=== PATIENT | female | born 1950 | race Caucasian/White ===

== ENCOUNTER 2019-02-02 16:49 | Inpatient (IN) ==
[2019-02-02] MEDS ORDERED: ALBUTEROL 2.5 MG/3 ML NEB RESP TX STA (17:23)
[2019-02-02] MEDS ORDERED: SODIUM CHLORIDE 0.9% 1,000 ML IV STA ×2 (17:55→23:29)
[2019-02-02 19:15] LABS: Basophils % 0.3 % (0.0-0.8); Eosinophils # 0.3 10*3/uL (0.0-0.87); Eosinophils % 3.7 % (0.00-10.9); Hematocrit 27.5 VOL% (35.7-47.0); Hemoglobin 8.5 GM/DL (12.0-16.0); Immature Granulocytes % 1.2 %; Immature Granulocytes Absolute 0.08 #; Lymphocytes # 1.8 10*3/uL (1.4-4.0); Lymphocytes % 26.8 % (21.3-54.2); Mean Corpuscular HGB Conc 30.9 GM/DL (32-36); Mean Corpuscular Volume 96.8 FL (87-102); Mean Platelet Volume 10.1 FL (9.6-12.0); Monocytes % 9.7 % (1.7-12.7); Neutrophils % 58.3 % (38.7-73.9); Platelet Count 447 T/CUMM (130-400); Red Blood Count 2.84 MC/CUMM (3.8-5.5); Red Cell Distribution Width 16.2 % (9.3-17.3); White Blood Count 6.8 T/CUMM (4-12)
[2019-02-02 19:20] LABS: Apearance,Urine CLOUDY (Clear); Bacteria,Urine Many /HPF (Few); Bilirubin,Urine Negative (Negative); Blood, Urine Small mg/dL (Negative); Glucose,Urine (UA) Negative (Negative); Ketones,Urine Negative (Negative); Mucus,Urine Occasional /LPF (Occasional); Nitrite,Urine Positive (Negative); Protein,Urine Negative; RBC,Urine 59 /HPF (0-4); Squamous Epithelial Cell,Urine Few /HPF (0-10); Urine Color Yellow (Yellow); Urine Specific Gravity 1.013 (1.001-1.035); Urine Urobilinogen < 2.0 EU/DL (0.2-1.0); WBC,Urine 553 /HPF (0-6)
[2019-02-02 19:27] LABS: PT Patient Result 10.9 SECS; Partial Thromboplastin Time 26.4 SECS (0-40)
[2019-02-02] MEDS ORDERED: cefTRIAXone 1,000 MG in SODIUM CHLORIDE 0.9% 100 ML IV STA (19:33)
[2019-02-02 19:34] LABS: Alanine Aminotransferase 22 U/L (13-56); Albumin 2.9 G/DL (3.4-5.0); Alkaline Phosphatase 44 U/L (45-117); Aspartate Amino Transferase 30 U/L (0-37); Bilirubin,Total < 0.39 MG/DL (0.2-1.0); Blood Urea Nitrogen 77 MG/DL (7-18); Calcium 8.8 MG/DL (8.5-10.1); Glucose 87 MG/DL (74-106); Osmolality,Calculated 307.8 MOS/KG (273-304); Total Protein 6.3 G/DL (6.4-8.3)
[2019-02-03] MEDS ORDERED: DOCUSATE SODIUM 100 MG CAPSULE PO PRN (01:55)
[2019-02-03] MEDS ORDERED: ONDANSETRON 4 MG/2 ML VIAL IV PRN (01:55)
[2019-02-03] MEDS ORDERED: ACETAMINOPHEN 325 MG TABLET PO PRN (01:55)
[2019-02-03] MEDS ORDERED: GLUCAGON 1 MG VIAL IM PRN (01:55)
[2019-02-03] MEDS ORDERED: DEXTROSE 50% 25 GM/50 ML VIAL IV PRN (01:55)
[2019-02-03] MEDS: SODIUM CHLORIDE 0.9% 1,000 ML IV SCH ×2 (02:40→11:39)
[2019-02-03] MEDS: AZITHROMYCIN INJ 500 MG in SODIUM CHLORIDE 0.9% 250 ML IV SCH (02:40)
[2019-02-03 03:04] LABS: Basophils % 0.3 % (0.0-0.8); Eosinophils # 0.2 10*3/uL (0.0-0.87); Eosinophils % 3.4 % (0.00-10.9); Hematocrit 22.1 VOL% (35.7-47.0); Hemoglobin 6.9 GM/DL (12.0-16.0); Immature Granulocytes Absolute 0.06 #; Lymphocytes # 1.8 10*3/uL (1.4-4.0); Lymphocytes % 30.6 % (21.3-54.2); Mean Corpuscular HGB Conc 31.2 GM/DL (32-36); Mean Corpuscular Volume 96.9 FL (87-102); Mean Platelet Volume 10.5 FL (9.6-12.0); Monocytes % 8.8 % (1.7-12.7); Neutrophils % 55.9 % (38.7-73.9); Platelet Count 393 T/CUMM (130-400); Red Blood Count 2.28 MC/CUMM (3.8-5.5); Red Cell Distribution Width 16.1 % (9.3-17.3); White Blood Count 5.9 T/CUMM (4-12)
[2019-02-03 03:33] LABS: Calcium 7.6 MG/DL (8.5-10.1); Osmolality,Calculated 306.7 MOS/KG (273-304); Thyroid Stimulating Hormone 0.78 uIU/ml (0.358-3.74)
[2019-02-03] MEDS: ENOXAPARIN 30 MG/0.3 ML SYRINGE SUBCUT SCH (06:01)
[2019-02-03] MEDS: ALBUTEROL/IPRATROPIUM 3 ML NEB RESP TX SCH ×3 (07:28→19:40)
[2019-02-03] MEDS ORDERED: SODIUM CHLORIDE 0.9% 1,000 ML IV PRN (08:34)
[2019-02-03] MEDS: INSULIN LISPRO 100 UNIT/ML SUBCUT SCH ×4 (08:43→20:55)
[2019-02-03] MEDS: GABAPENTIN 300 MG CAPSULE PO SCH ×3 (08:43→20:44)
[2019-02-03] MEDS: LORATADINE 10 MG TABLET PO SCH (08:43)
[2019-02-03] MEDS: MAGNESIUM CHLORIDE 64 MG TABLET PO SCH ×2 (08:43→21:01)
[2019-02-03] MEDS: POTASSIUM CHLORIDE 20 MEQ TABLET PO SCH ×2 (08:43→20:44)
[2019-02-03] MEDS: MULTIVITAMIN (CENTRUM) TABLET PO SCH (08:44)
[2019-02-03] MEDS: CARVEDILOL 6.25 MG TABLET PO SCH ×2 (08:44→17:40)
[2019-02-03] MEDS: guaiFENesin/DM ER 600-30 MG TABLET PO SCH ×2 (08:44→20:44)
[2019-02-03] MEDS: VENLAFAXINE XR 37.5 MG CAPSULE PO SCH (08:44)
[2019-02-03] MEDS: FENOFIBRATE 160 MG TABLET PO SCH (09:48)
[2019-02-03 19:13] LABS: Hemoglobin 9.8 GM/DL (12.0-16.0)
[2019-02-03] MEDS ORDERED: cefTRIAXone 1,000 MG in SYRINGE 1 EACH IV SCH (20:00)
[2019-02-03] MEDS: ATORVASTATIN 40 MG TABLET PO SCH (20:44)
[2019-02-03] MEDS: POLYVINYL ALCOHOL 1.4% OPH SOLN 15 ML BOTTLE BOTH EYES SCH (20:53)
[2019-02-03] MEDS: INSULIN GLARGINE 100 UNIT/ML SUBCUT SCH (20:54)
[2019-02-04] MEDS: ALBUTEROL/IPRATROPIUM 3 ML NEB RESP TX SCH ×4 (00:19→23:40)
[2019-02-04] MEDS: AZITHROMYCIN INJ 500 MG in SODIUM CHLORIDE 0.9% 250 ML IV SCH (01:27)
[2019-02-04] MEDS: SODIUM CHLORIDE 0.9% 1,000 ML IV SCH ×2 (01:40→12:01)
[2019-02-04 04:36] LABS: Basophils % 0.4 % (0.0-0.8); Eosinophils # 0.3 10*3/uL (0.0-0.87); Eosinophils % 4.7 % (0.00-10.9); Hemoglobin 8.8 GM/DL (12.0-16.0); Immature Granulocytes % 1.1 %; Immature Granulocytes Absolute 0.06 #; Lymphocytes # 2.3 10*3/uL (1.4-4.0); Lymphocytes % 40.3 % (21.3-54.2); Mean Corpuscular HGB Conc 31.4 GM/DL (32-36); Mean Corpuscular Volume 95.2 FL (87-102); Monocytes % 8.9 % (1.7-12.7); Neutrophils % 44.6 % (38.7-73.9); Platelet Count 312 T/CUMM (130-400); Red Blood Count 2.94 MC/CUMM (3.8-5.5); Red Cell Distribution Width 15.5 % (9.3-17.3); White Blood Count 5.6 T/CUMM (4-12)
[2019-02-04 04:59] LABS: Calcium 7.4 MG/DL (8.5-10.1); Osmolality,Calculated 299.8 MOS/KG (273-304)
[2019-02-04] MEDS: ENOXAPARIN 30 MG/0.3 ML SYRINGE SUBCUT SCH (05:12)
[2019-02-04] MEDS: MULTIVITAMIN (CENTRUM) TABLET PO SCH (08:19)
[2019-02-04] MEDS: MAGNESIUM CHLORIDE 64 MG TABLET PO SCH ×2 (08:19→21:03)
[2019-02-04] MEDS: FENOFIBRATE 160 MG TABLET PO SCH (08:19)
[2019-02-04] MEDS: guaiFENesin/DM ER 600-30 MG TABLET PO SCH ×2 (08:19→21:03)
[2019-02-04] MEDS: POTASSIUM CHLORIDE 20 MEQ TABLET PO SCH ×2 (08:20→21:03)
[2019-02-04] MEDS: LORATADINE 10 MG TABLET PO SCH (08:20)
[2019-02-04] MEDS: INSULIN LISPRO 100 UNIT/ML SUBCUT SCH ×4 (08:20→21:08)
[2019-02-04] MEDS: CARVEDILOL 6.25 MG TABLET PO SCH ×2 (08:20→18:16)
[2019-02-04] MEDS: GABAPENTIN 300 MG CAPSULE PO SCH ×3 (08:20→21:03)
[2019-02-04] MEDS: VENLAFAXINE XR 37.5 MG CAPSULE PO SCH (08:21)
[2019-02-04] MEDS ORDERED: VANCOMYCIN INJ 1,000 MG in SODIUM CHLORIDE 0.9% 250 ML IV SCH ×2 (14:00→14:30)
[2019-02-04] MEDS ORDERED: PIPERACILLIN/TAZOBACTAM 3,375 MG in SODIUM CHLORIDE 0.9% 100 ML IV SCH (14:30)
[2019-02-04] MEDS ORDERED: PIPERACILLIN/TAZOBACTAM 2,250 MG in SODIUM CHLORIDE 0.9% 100 ML IV SCH (14:30)
[2019-02-04] MEDS: PIPERACILLIN/TAZOBACTAM 3,375 MG in SODIUM CHLORIDE 0.9% 100 ML IV SCH (14:59)
[2019-02-04] MEDS: VANCOMYCIN INJ 1,250 MG in SODIUM CHLORIDE 0.9% 250 ML IV SCH (18:16)
[2019-02-04] MEDS: ATORVASTATIN 40 MG TABLET PO SCH (21:03)
[2019-02-04] MEDS: POLYVINYL ALCOHOL 1.4% OPH SOLN 15 ML BOTTLE BOTH EYES SCH (21:09)
[2019-02-04] MEDS: INSULIN GLARGINE 100 UNIT/ML SUBCUT SCH (21:09)
[2019-02-05] MEDS: ALBUTEROL/IPRATROPIUM 3 ML NEB RESP TX SCH ×4 (02:20→19:32)
[2019-02-05] MEDS: SODIUM CHLORIDE 0.9% 1,000 ML IV SCH ×2 (02:27→18:29)
[2019-02-05] MEDS: PIPERACILLIN/TAZOBACTAM 3,375 MG in SODIUM CHLORIDE 0.9% 100 ML IV SCH ×2 (03:07→15:03)
[2019-02-05] MEDS: ENOXAPARIN 30 MG/0.3 ML SYRINGE SUBCUT SCH (05:10)
[2019-02-05 06:45] LABS: Basophils % 0.5 % (0.0-0.8); Eosinophils # 0.3 10*3/uL (0.0-0.87); Eosinophils % 5.5 % (0.00-10.9); Hematocrit 31.6 VOL% (35.7-47.0); Hemoglobin 9.9 GM/DL (12.0-16.0); Immature Granulocytes % 1.5 %; Immature Granulocytes Absolute 0.09 #; Mean Corpuscular HGB Conc 31.3 GM/DL (32-36); Mean Corpuscular Volume 95.5 FL (87-102); Mean Platelet Volume 10.2 FL (9.6-12.0); Monocytes % 9.3 % (1.7-12.7); Neutrophils % 49.2 % (38.7-73.9); Platelet Count 343 T/CUMM (130-400); Red Blood Count 3.31 MC/CUMM (3.8-5.5); Red Cell Distribution Width 15.4 % (9.3-17.3); White Blood Count 5.8 T/CUMM (4-12)
[2019-02-05 07:07] LABS: Calcium 7.9 MG/DL (8.5-10.1)
[2019-02-05] MEDS: INSULIN LISPRO 100 UNIT/ML SUBCUT SCH ×4 (08:58→21:21)
[2019-02-05] MEDS: CARVEDILOL 6.25 MG TABLET PO SCH ×2 (08:59→18:40)
[2019-02-05] MEDS: VENLAFAXINE XR 37.5 MG CAPSULE PO SCH (09:00)
[2019-02-05] MEDS: MAGNESIUM CHLORIDE 64 MG TABLET PO SCH ×2 (09:00→21:18)
[2019-02-05] MEDS: GABAPENTIN 300 MG CAPSULE PO SCH ×3 (09:00→21:18)
[2019-02-05] MEDS: MULTIVITAMIN (CENTRUM) TABLET PO SCH (09:00)
[2019-02-05] MEDS: guaiFENesin/DM ER 600-30 MG TABLET PO SCH ×2 (09:00→21:18)
[2019-02-05] MEDS: FENOFIBRATE 160 MG TABLET PO SCH (09:00)
[2019-02-05] MEDS: LORATADINE 10 MG TABLET PO SCH (09:00)
[2019-02-05] MEDS: POTASSIUM CHLORIDE 20 MEQ TABLET PO SCH ×2 (09:07→21:19)
[2019-02-05] MEDS: VANCOMYCIN INJ 1,250 MG in SODIUM CHLORIDE 0.9% 250 ML IV SCH (18:40)
[2019-02-05] MEDS: ATORVASTATIN 40 MG TABLET PO SCH (21:18)
[2019-02-05] MEDS: POLYVINYL ALCOHOL 1.4% OPH SOLN 15 ML BOTTLE BOTH EYES SCH (21:18)
[2019-02-05] MEDS: INSULIN GLARGINE 100 UNIT/ML SUBCUT SCH (21:21)
[2019-02-06] MEDS: ALBUTEROL/IPRATROPIUM 3 ML NEB RESP TX SCH ×4 (00:08→20:02)
[2019-02-06] MEDS: PIPERACILLIN/TAZOBACTAM 3,375 MG in SODIUM CHLORIDE 0.9% 100 ML IV SCH ×2 (01:58→14:03)
[2019-02-06] MEDS: SODIUM CHLORIDE 0.9% 1,000 ML IV SCH ×3 (01:58→17:44)
[2019-02-06 06:23] LABS: Basophils % 0.3 % (0.0-0.8); Eosinophils # 0.4 10*3/uL (0.0-0.87); Hematocrit 31.1 VOL% (35.7-47.0); Hemoglobin 9.8 GM/DL (12.0-16.0); Immature Granulocytes % 1.4 %; Immature Granulocytes Absolute 0.09 #; Lymphocytes # 2.1 10*3/uL (1.4-4.0); Lymphocytes % 33.3 % (21.3-54.2); Mean Corpuscular HGB Conc 31.5 GM/DL (32-36); Mean Corpuscular Volume 94.5 FL (87-102); Mean Platelet Volume 9.9 FL (9.6-12.0); Monocytes % 8.2 % (1.7-12.7); Neutrophils % 50.8 % (38.7-73.9); Platelet Count 338 T/CUMM (130-400); Red Blood Count 3.29 MC/CUMM (3.8-5.5); Red Cell Distribution Width 15.2 % (9.3-17.3); White Blood Count 6.3 T/CUMM (4-12)
[2019-02-06 06:38] LABS: Calcium 7.8 MG/DL (8.5-10.1)
[2019-02-06] MEDS: ENOXAPARIN 30 MG/0.3 ML SYRINGE SUBCUT SCH (07:38)
[2019-02-06] MEDS: INSULIN LISPRO 100 UNIT/ML SUBCUT SCH ×4 (08:35→21:29)
[2019-02-06] MEDS: MAGNESIUM CHLORIDE 64 MG TABLET PO SCH ×2 (08:38→21:28)
[2019-02-06] MEDS: POTASSIUM CHLORIDE 20 MEQ TABLET PO SCH ×2 (08:38→21:28)
[2019-02-06] MEDS: GABAPENTIN 300 MG CAPSULE PO SCH ×3 (08:38→21:28)
[2019-02-06] MEDS: MULTIVITAMIN (CENTRUM) TABLET PO SCH (08:38)
[2019-02-06] MEDS: FENOFIBRATE 160 MG TABLET PO SCH (08:38)
[2019-02-06] MEDS: VENLAFAXINE XR 37.5 MG CAPSULE PO SCH (08:38)
[2019-02-06] MEDS: CARVEDILOL 6.25 MG TABLET PO SCH ×2 (08:38→17:42)
[2019-02-06] MEDS: LORATADINE 10 MG TABLET PO SCH (08:38)
[2019-02-06] MEDS: guaiFENesin/DM ER 600-30 MG TABLET PO SCH ×2 (08:38→21:28)
[2019-02-06] MEDS: ACETYLCYSTEINE 20% 800 MG/4 ML VIAL RESP TX SCH ×2 (11:39→20:02)
[2019-02-06] MEDS: VANCOMYCIN INJ 1,250 MG in SODIUM CHLORIDE 0.9% 250 ML IV SCH (17:42)
[2019-02-06] MEDS: POLYVINYL ALCOHOL 1.4% OPH SOLN 15 ML BOTTLE BOTH EYES SCH (20:35)
[2019-02-06] MEDS: ATORVASTATIN 40 MG TABLET PO SCH (21:28)
[2019-02-06] MEDS: INSULIN GLARGINE 100 UNIT/ML SUBCUT SCH (21:29)
[2019-02-07] MEDS: SODIUM CHLORIDE 0.9% 1,000 ML IV SCH ×3 (00:30→21:43)
[2019-02-07] MEDS: ALBUTEROL/IPRATROPIUM 3 ML NEB RESP TX SCH ×4 (01:02→19:32)
[2019-02-07] MEDS: PIPERACILLIN/TAZOBACTAM 3,375 MG in SODIUM CHLORIDE 0.9% 100 ML IV SCH ×2 (02:08→14:04)
[2019-02-07] MEDS: ENOXAPARIN 30 MG/0.3 ML SYRINGE SUBCUT SCH (06:33)
[2019-02-07] MEDS: ACETYLCYSTEINE 20% 800 MG/4 ML VIAL RESP TX SCH ×2 (07:46→19:32)
[2019-02-07] MEDS: POTASSIUM CHLORIDE 20 MEQ TABLET PO SCH ×2 (08:23→21:32)
[2019-02-07] MEDS: VENLAFAXINE XR 37.5 MG CAPSULE PO SCH (08:23)
[2019-02-07] MEDS: FENOFIBRATE 160 MG TABLET PO SCH (08:23)
[2019-02-07] MEDS: GABAPENTIN 300 MG CAPSULE PO SCH ×3 (08:23→21:32)
[2019-02-07] MEDS: guaiFENesin/DM ER 600-30 MG TABLET PO SCH ×2 (08:23→21:32)
[2019-02-07] MEDS: LORATADINE 10 MG TABLET PO SCH (08:23)
[2019-02-07] MEDS: CARVEDILOL 6.25 MG TABLET PO SCH ×2 (08:23→17:48)
[2019-02-07] MEDS: MULTIVITAMIN (CENTRUM) TABLET PO SCH (08:23)
[2019-02-07] MEDS: INSULIN LISPRO 100 UNIT/ML SUBCUT SCH ×4 (08:23→21:30)
[2019-02-07] MEDS: MAGNESIUM CHLORIDE 64 MG TABLET PO SCH ×2 (08:23→21:31)
[2019-02-07] MEDS: VANCOMYCIN INJ 1,250 MG in SODIUM CHLORIDE 0.9% 250 ML IV SCH (17:48)
[2019-02-07 19:52] LABS: Calcium 7.6 MG/DL (8.5-10.1); Osmolality,Calculated 289.1 MOS/KG (273-304)
[2019-02-07] MEDS: INSULIN GLARGINE 100 UNIT/ML SUBCUT SCH (21:29)
[2019-02-07] MEDS: ATORVASTATIN 40 MG TABLET PO SCH (21:32)
[2019-02-07] MEDS: POLYVINYL ALCOHOL 1.4% OPH SOLN 15 ML BOTTLE BOTH EYES SCH (21:41)
[2019-02-08] MEDS: ALBUTEROL/IPRATROPIUM 3 ML NEB RESP TX SCH ×4 (00:39→19:29)
[2019-02-08] MEDS: PIPERACILLIN/TAZOBACTAM 3,375 MG in SODIUM CHLORIDE 0.9% 100 ML IV SCH ×2 (03:03→15:00)
[2019-02-08] MEDS: ENOXAPARIN 30 MG/0.3 ML SYRINGE SUBCUT SCH (05:27)
[2019-02-08] MEDS: ACETYLCYSTEINE 20% 800 MG/4 ML VIAL RESP TX SCH ×2 (07:22→19:29)
[2019-02-08] MEDS: INSULIN LISPRO 100 UNIT/ML SUBCUT SCH ×4 (08:08→20:52)
[2019-02-08] MEDS: LORATADINE 10 MG TABLET PO SCH (08:13)
[2019-02-08] MEDS: CARVEDILOL 6.25 MG TABLET PO SCH ×2 (08:13→17:24)
[2019-02-08] MEDS: POTASSIUM CHLORIDE 20 MEQ TABLET PO SCH ×2 (08:13→20:51)
[2019-02-08] MEDS: FENOFIBRATE 160 MG TABLET PO SCH (08:13)
[2019-02-08] MEDS: GABAPENTIN 300 MG CAPSULE PO SCH ×3 (08:13→20:51)
[2019-02-08] MEDS: VENLAFAXINE XR 37.5 MG CAPSULE PO SCH (08:13)
[2019-02-08] MEDS: MULTIVITAMIN (CENTRUM) TABLET PO SCH (08:13)
[2019-02-08] MEDS: guaiFENesin/DM ER 600-30 MG TABLET PO SCH ×2 (08:13→20:51)
[2019-02-08] MEDS: MAGNESIUM CHLORIDE 64 MG TABLET PO SCH ×2 (08:13→20:51)
[2019-02-08 12:35] LABS: Albumin 2.1 G/DL (3.4-5.0); Bilirubin,Total 0.4 MG/DL (0.2-1.0); Calcium 7.8 MG/DL (8.5-10.1); Osmolality,Calculated 283.4 MOS/KG (273-304); Total Protein 5.5 G/DL (6.4-8.3)
[2019-02-08 12:36] LABS: Basophils % 0.6 % (0.0-0.8); Eosinophils # 0.4 10*3/uL (0.0-0.87); Eosinophils % 5.8 % (0.00-10.9); Hematocrit 33.7 VOL% (35.7-47.0); Hemoglobin 10.5 GM/DL (12.0-16.0); Immature Granulocytes % 1.5 %; Immature Granulocytes Absolute 0.11 #; Lymphocytes % 27.9 % (21.3-54.2); Mean Corpuscular HGB Conc 31.2 GM/DL (32-36); Mean Corpuscular Volume 96.3 FL (87-102); Mean Platelet Volume 10.1 FL (9.6-12.0); Monocytes % 6.7 % (1.7-12.7); Neutrophils % 57.5 % (38.7-73.9); Platelet Count 321 T/CUMM (130-400); Red Cell Distribution Width 15.2 % (9.3-17.3); White Blood Count 7.2 T/CUMM (4-12)
[2019-02-08] MEDS: SODIUM CHLORIDE 0.9% 1,000 ML IV SCH (20:50)
[2019-02-08] MEDS: INSULIN GLARGINE 100 UNIT/ML SUBCUT SCH (20:52)
[2019-02-08] MEDS: POLYVINYL ALCOHOL 1.4% OPH SOLN 15 ML BOTTLE BOTH EYES SCH (20:52)
[2019-02-08] MEDS: ATORVASTATIN 40 MG TABLET PO SCH (20:52)
[2019-02-09] MEDS: ALBUTEROL/IPRATROPIUM 3 ML NEB RESP TX SCH ×2 (00:27→07:39)
[2019-02-09] MEDS: PIPERACILLIN/TAZOBACTAM 3,375 MG in SODIUM CHLORIDE 0.9% 100 ML IV SCH (03:26)
[2019-02-09 05:05] LABS: Basophils % 0.5 % (0.0-0.8); Eosinophils # 0.4 10*3/uL (0.0-0.87); Hematocrit 31.1 VOL% (35.7-47.0); Hemoglobin 9.8 GM/DL (12.0-16.0); Immature Granulocytes % 1.4 %; Immature Granulocytes Absolute 0.09 #; Lymphocytes # 2.2 10*3/uL (1.4-4.0); Lymphocytes % 33.4 % (21.3-54.2); Mean Corpuscular HGB Conc 31.5 GM/DL (32-36); Mean Corpuscular Volume 94.5 FL (87-102); Mean Platelet Volume 10.5 FL (9.6-12.0); Monocytes % 8.5 % (1.7-12.7); Neutrophils % 50.2 % (38.7-73.9); Platelet Count 316 T/CUMM (130-400); Red Blood Count 3.29 MC/CUMM (3.8-5.5); Red Cell Distribution Width 15.2 % (9.3-17.3); White Blood Count 6.5 T/CUMM (4-12)
[2019-02-09 05:26] LABS: Alanine Aminotransferase 17 U/L (13-56); Albumin 2.1 G/DL (3.4-5.0); Alkaline Phosphatase 37 U/L (45-117); Aspartate Amino Transferase 18 U/L (0-37); Bilirubin,Total < 0.39 MG/DL (0.2-1.0); Blood Urea Nitrogen 24 MG/DL (7-18); Calcium 7.7 MG/DL (8.5-10.1); Glucose 99 MG/DL (74-106); Total Protein 5.1 G/DL (6.4-8.3)
[2019-02-09] MEDS ORDERED: VANCOMYCIN INJ 1,000 MG in SODIUM CHLORIDE 0.9% 250 ML IV SCH (06:00)
[2019-02-09] MEDS: ENOXAPARIN 30 MG/0.3 ML SYRINGE SUBCUT SCH (06:43)
[2019-02-09] MEDS: ACETYLCYSTEINE 20% 800 MG/4 ML VIAL RESP TX SCH (07:39)
[2019-02-09] MEDS: INSULIN LISPRO 100 UNIT/ML SUBCUT SCH ×2 (08:32→12:25)
[2019-02-09] MEDS: GABAPENTIN 300 MG CAPSULE PO SCH (09:23)
[2019-02-09] MEDS: FENOFIBRATE 160 MG TABLET PO SCH (09:23)
[2019-02-09] MEDS: CARVEDILOL 6.25 MG TABLET PO SCH (09:23)
[2019-02-09] MEDS: guaiFENesin/DM ER 600-30 MG TABLET PO SCH (09:23)
[2019-02-09] MEDS: LORATADINE 10 MG TABLET PO SCH (09:23)
[2019-02-09] MEDS: VENLAFAXINE XR 37.5 MG CAPSULE PO SCH (09:23)
[2019-02-09] MEDS: POTASSIUM CHLORIDE 20 MEQ TABLET PO SCH (09:23)
[2019-02-09] MEDS: MULTIVITAMIN (CENTRUM) TABLET PO SCH (09:23)
[2019-02-09] MEDS: MAGNESIUM CHLORIDE 64 MG TABLET PO SCH (09:23)
[2019-02-09 11:28] VITALS: BP 163/61
[2019-02-09] MEDS: SODIUM CHLORIDE 0.9% 1,000 ML IV SCH (12:25)
== END 2019-02-09 15:15 | DRG 690 ==
LOC: EDBD → EDUNIT# → N.EDINP 16:49 → N.ED 16:49 → N.5E 02-03 01:06 → SUATTDRO 02-03 13:08
PROVIDERS: ADMIT Internal Medicine; ATTEND Internal Medicine

== ENCOUNTER 2021-05-02 03:13 | Inpatient (IN) ==
[2021-05-02] MEDS ORDERED: PANTOPRAZOLE 40 MG VIAL IV STA (03:39)
[2021-05-02] MEDS ORDERED: ONDANSETRON 4 MG/2 ML VIAL IV STA (03:39)
[2021-05-02] MEDS ORDERED: SODIUM CHLORIDE 0.9% 500 ML IV STA (03:39)
[2021-05-02 04:33] LABS: Basophils # 0.1 10*3/uL (0.0-0.2); Basophils % 0.4 % (0.0-0.8); Eosinophils % 0.2 % (0.00-10.9); Hematocrit 37.7 VOL% (35.7-47.0); Hemoglobin 12.3 GM/DL (12.0-16.0); Immature Granulocytes % 1.1 %; Immature Granulocytes Absolute 0.16 #; Lymphocytes # 1.9 10*3/uL (1.4-4.0); Lymphocytes % 13.1 % (21.3-54.2); Mean Corpuscular HGB Conc 32.6 GM/DL (32-36); Mean Platelet Volume 9.9 FL (9.6-12.0); Monocytes % 2.9 % (1.7-12.7); Neutrophils % 82.3 % (38.7-73.9); Platelet Count 381 T/CUMM (130-400); Red Blood Count 3.97 MC/CUMM (3.8-5.5); Red Cell Distribution Width 12.4 % (9.3-17.3); White Blood Count 14.2 T/CUMM (4-12)
[2021-05-02 04:41] LABS: Bacteria,Urine Many /HPF (Few); Bilirubin,Urine Negative (Negative); Blood, Urine Negative (Negative); Glucose,Urine (UA) 50 mg/dL (Negative); Ketones,Urine Negative (Negative); Mucus,Urine Many /LPF (Occasional); Nitrite,Urine Negative (Negative); Protein,Urine >=500 MG/DL; RBC,Urine 19 /HPF (0-4); Urine Appearance CLOUDY (Clear); Urine Color Yellow (Yellow); Urine Specific Gravity 1.017 (1.001-1.035); Urine Urobilinogen < 2.0 EU/DL (0.2-1.0)
[2021-05-02 04:46] LABS: PT Patient Result 11.2 SECS (10.5-12.0)
[2021-05-02] MEDS ORDERED: cefTRIAXone 1,000 MG in SODIUM CHLORIDE 0.9% 100 ML IV STA (05:00)
[2021-05-02 05:09] LABS: Albumin 2.8 G/DL (3.4-5.0); Bilirubin,Total 0.4 MG/DL (0.20-1.00); Calcium 8.7 MG/DL (8.5-10.1); Osmolality,Calculated 301.3 MOS/KG (273-304); Potassium 4.1 MMOL/L (3.5-5.1); Total Protein 6.7 G/DL (6.4-8.2)
[2021-05-02] MEDS ORDERED: DOCUSATE SODIUM 100 MG CAPSULE PO PRN (05:39)
[2021-05-02] MEDS ORDERED: ZALEPLON 5 MG CAPSULE PO PRN (05:39)
[2021-05-02] MEDS ORDERED: MORPHINE 2 MG/1 ML SYRINGE IV PRN (05:39)
[2021-05-02] MEDS ORDERED: GLUCAGON 1 MG VIAL IM PRN (05:39)
[2021-05-02] MEDS ORDERED: hydrALAZINE 20 MG/1 ML VIAL IV PRN (05:39)
[2021-05-02] MEDS ORDERED: ACETAMINOPHEN 325 MG TABLET PO PRN (05:39)
[2021-05-02] MEDS ORDERED: ONDANSETRON 4 MG/2 ML VIAL IV PRN (05:39)
[2021-05-02] MEDS ORDERED: DEXTROSE 50% 25 GM/50 ML VIAL IV PRN (05:39)
[2021-05-02] MEDS: SODIUM CHLORIDE 0.9% 1,000 ML IV SCH ×2 (07:00→22:33)
[2021-05-02] MEDS ORDERED: AZITHROMYCIN 250 MG TABLET PO SCH (07:00)
[2021-05-02] MEDS ORDERED: cefTRIAXone 1,000 MG in SODIUM CHLORIDE 0.9% 100 ML IV SCH (07:00)
[2021-05-02] MEDS: ALBUTEROL/IPRATROPIUM 3 ML NEB RESP TX SCH ×3 (07:20→20:38)
[2021-05-02] MEDS: INSULIN LISPRO 100 UNIT/ML SUBCUT SCH ×4 (08:40→23:33)
[2021-05-02] MEDS: FUROSEMIDE 20 MG TABLET PO SCH (09:00)
[2021-05-02] MEDS: carvediloL 6.25 MG TABLET PO SCH ×2 (09:00→20:44)
[2021-05-02] MEDS: LORATADINE 10 MG TABLET PO SCH (09:00)
[2021-05-02] MEDS: PANTOPRAZOLE 40 MG VIAL IV SCH (20:44)
[2021-05-02] MEDS: MENTHOL/ZINC OXIDE OINT 71 GM JAR TOP SCH (20:44)
[2021-05-02] MEDS: ATORVASTATIN 40 MG TABLET PO SCH (20:44)
[2021-05-03] MEDS: ALBUTEROL/IPRATROPIUM 3 ML NEB RESP TX SCH ×4 (02:15→19:35)
[2021-05-03 06:09] LABS: Basophils # 0.1 10*3/uL (0.0-0.2); Basophils % 0.4 % (0.0-0.8); Eosinophils # 0.3 10*3/uL (0.0-0.87); Eosinophils % 2.7 % (0.00-10.9); Hematocrit 33.2 VOL% (35.7-47.0); Hemoglobin 10.5 GM/DL (12.0-16.0); Immature Granulocytes % 1.9 %; Immature Granulocytes Absolute 0.23 #; Lymphocytes # 2.7 10*3/uL (1.4-4.0); Lymphocytes % 22.1 % (21.3-54.2); Mean Corpuscular HGB Conc 31.6 GM/DL (32-36); Mean Corpuscular Volume 97.1 FL (87-102); Mean Platelet Volume 9.7 FL (9.6-12.0); Neutrophils % 65.9 % (38.7-73.9); Platelet Count 282 T/CUMM (130-400); Red Blood Count 3.42 MC/CUMM (3.8-5.5); Red Cell Distribution Width 12.4 % (9.3-17.3); White Blood Count 12.2 T/CUMM (4-12)
[2021-05-03 06:25] LABS: Osmolality,Calculated 289.5 MOS/KG (273-304); Potassium 3.6 MMOL/L (3.5-5.1)
[2021-05-03] MEDS: INSULIN LISPRO 100 UNIT/ML SUBCUT SCH ×3 (06:42→17:10)
[2021-05-03] MEDS ORDERED: propofoL 200 MG/20 ML VIAL IV ONE (07:46)
[2021-05-03] MEDS ORDERED: LIDOCAINE 2% 5 ML VIAL ONE (07:46)
[2021-05-03] MEDS ORDERED: ETOMIDATE 20 MG/10 ML VIAL IV ONE (07:46)
[2021-05-03] MEDS: SODIUM CHLORIDE 0.9% 500 ML IV SCH (08:35)
[2021-05-03] MEDS: FUROSEMIDE 20 MG TABLET PO SCH (10:28)
[2021-05-03] MEDS: carvediloL 6.25 MG TABLET PO SCH ×2 (10:28→22:24)
[2021-05-03] MEDS: LORATADINE 10 MG TABLET PO SCH (10:28)
[2021-05-03] MEDS: cefTRIAXone 1,000 MG in SODIUM CHLORIDE 0.9% 100 ML IV SCH (10:29)
[2021-05-03] MEDS: PANTOPRAZOLE 40 MG VIAL IV SCH ×2 (10:29→22:25)
[2021-05-03] MEDS: SODIUM CHLORIDE 0.9% 1,000 ML IV SCH (10:29)
[2021-05-03] MEDS: MENTHOL/ZINC OXIDE OINT 71 GM JAR TOP SCH ×2 (10:29→19:55)
[2021-05-03] MEDS: ATORVASTATIN 40 MG TABLET PO SCH (22:24)
[2021-05-04] MEDS: INSULIN LISPRO 100 UNIT/ML SUBCUT SCH ×5 (03:36→21:03)
[2021-05-04 05:57] LABS: Basophils # 0.1 10*3/uL (0.0-0.2); Basophils % 0.5 % (0.0-0.8); Eosinophils # 0.4 10*3/uL (0.0-0.87); Eosinophils % 3.7 % (0.00-10.9); Hematocrit 31.6 VOL% (35.7-47.0); Hemoglobin 10.2 GM/DL (12.0-16.0); Immature Granulocytes % 0.6 %; Immature Granulocytes Absolute 0.06 #; Lymphocytes # 3.5 10*3/uL (1.4-4.0); Lymphocytes % 34.8 % (21.3-54.2); Mean Corpuscular HGB Conc 32.3 GM/DL (32-36); Mean Corpuscular Volume 95.8 FL (87-102); Mean Platelet Volume 10.3 FL (9.6-12.0); Monocytes % 6.1 % (1.7-12.7); Neutrophils % 54.3 % (38.7-73.9); Platelet Count 285 T/CUMM (130-400); Red Cell Distribution Width 12.3 % (9.3-17.3)
[2021-05-04 06:22] LABS: Calcium 8.3 MG/DL (8.5-10.1); Osmolality,Calculated 288.1 MOS/KG (273-304); Potassium 3.3 MMOL/L (3.5-5.1)
[2021-05-04] MEDS ORDERED: POTASSIUM CHLORIDE 20 MEQ PACK PO ONE (07:45)
[2021-05-04] MEDS ORDERED: MAGNESIUM SULF RIDER 2 GM/50 ML PREMIX IV ONE (07:45)
[2021-05-04] MEDS: ALBUTEROL/IPRATROPIUM 3 ML NEB RESP TX SCH ×4 (08:00→20:12)
[2021-05-04] MEDS: SODIUM CHLORIDE 0.9% 500 ML IV SCH (08:44)
[2021-05-04] MEDS: carvediloL 6.25 MG TABLET PO SCH ×2 (08:45→21:01)
[2021-05-04] MEDS: LORATADINE 10 MG TABLET PO SCH (08:46)
[2021-05-04] MEDS: FUROSEMIDE 20 MG TABLET PO SCH (08:47)
[2021-05-04] MEDS: cefTRIAXone 1,000 MG in SODIUM CHLORIDE 0.9% 100 ML IV SCH (08:48)
[2021-05-04] MEDS: PANTOPRAZOLE 40 MG VIAL IV SCH ×2 (08:50→21:08)
[2021-05-04] MEDS: MENTHOL/ZINC OXIDE OINT 71 GM JAR TOP SCH ×2 (08:54→21:09)
[2021-05-04] MEDS: ATORVASTATIN 40 MG TABLET PO SCH (21:01)
[2021-05-05] MEDS: ALBUTEROL/IPRATROPIUM 3 ML NEB RESP TX SCH ×2 (01:00→07:15)
[2021-05-05 04:32] LABS: Basophils % 0.4 % (0.0-0.8); Eosinophils # 0.3 10*3/uL (0.0-0.87); Eosinophils % 3.5 % (0.00-10.9); Hematocrit 29.5 VOL% (35.7-47.0); Hemoglobin 9.8 GM/DL (12.0-16.0); Immature Granulocytes % 0.9 %; Immature Granulocytes Absolute 0.07 #; Lymphocytes # 2.8 10*3/uL (1.4-4.0); Mean Corpuscular HGB Conc 33.2 GM/DL (32-36); Mean Corpuscular Volume 93.1 FL (87-102); Mean Platelet Volume 9.9 FL (9.6-12.0); Monocytes % 8.2 % (1.7-12.7); Platelet Count 289 T/CUMM (130-400); Red Blood Count 3.17 MC/CUMM (3.8-5.5); Red Cell Distribution Width 12.1 % (9.3-17.3); White Blood Count 8.1 T/CUMM (4-12)
[2021-05-05 04:53] LABS: Osmolality,Calculated 289.3 MOS/KG (273-304); Potassium 3.5 MMOL/L (3.5-5.1)
[2021-05-05] MEDS: LORATADINE 10 MG TABLET PO SCH (08:46)
[2021-05-05] MEDS: FUROSEMIDE 20 MG TABLET PO SCH (08:46)
[2021-05-05] MEDS: SODIUM CHLORIDE 0.9% 500 ML IV SCH (08:46)
[2021-05-05] MEDS: carvediloL 6.25 MG TABLET PO SCH (08:46)
[2021-05-05] MEDS: INSULIN LISPRO 100 UNIT/ML SUBCUT SCH ×2 (08:47→13:04)
[2021-05-05] MEDS: cefTRIAXone 1,000 MG in SODIUM CHLORIDE 0.9% 100 ML IV SCH (08:47)
[2021-05-05] MEDS: PANTOPRAZOLE 40 MG VIAL IV SCH (08:47)
[2021-05-05] MEDS: MENTHOL/ZINC OXIDE OINT 71 GM JAR TOP SCH (08:48)
[2021-05-05 11:49] VITALS: BP 156/53
== END 2021-05-05 14:06 | DRG 378 ==
LOC: SUATTDRO → N.ED 03:13 → N.EDINP 05:39 → N.5E 10:29
PROVIDERS: ADMIT Internal Medicine; ATTEND Internal Medicine

== ENCOUNTER 2021-06-18 10:11 | Observation (INO) ==
[2021-06-18] MEDS ORDERED: ONDANSETRON 4 MG/2 ML VIAL IV STA (11:02)
[2021-06-18] MEDS ORDERED: SODIUM CHLORIDE 0.9% 1,000 ML IV STA (11:02)
[2021-06-18 12:39] LABS: Basophils % 0.1 % (0.0-0.8); Hematocrit 44.9 VOL% (35.7-47.0); Hemoglobin 14.1 GM/DL (12.0-16.0); Immature Granulocytes % 0.7 %; Immature Granulocytes Absolute 0.09 #; Lymphocytes # 2.7 10*3/uL (1.4-4.0); Lymphocytes % 19.6 % (21.3-54.2); Mean Corpuscular HGB Conc 31.4 GM/DL (32-36); Mean Corpuscular Volume 97.2 FL (87-102); Mean Platelet Volume 10.1 FL (9.6-12.0); Monocytes % 4.7 % (1.7-12.7); Neutrophils % 74.9 % (38.7-73.9); Platelet Count 421 T/CUMM (130-400); Red Blood Count 4.62 MC/CUMM (3.8-5.5); Red Cell Distribution Width 12.3 % (9.3-17.3); White Blood Count 13.5 T/CUMM (4-12)
[2021-06-18 12:55] LABS: Alanine Aminotransferase 27 U/L (13-56); Albumin 3.2 G/DL (3.4-5.0); Alkaline Phosphatase 144 U/L (45-117); Aspartate Amino Transferase 15 U/L (0-37); Bilirubin,Total < 0.39 MG/DL (0.20-1.00); Blood Urea Nitrogen 41 MG/DL (7-18); Calcium 9.2 MG/DL (8.5-10.1); Carbon Dioxide 33 MMOL/L (21-32); Estimated Glom Filtration Rate 33 ML/MIN; Glucose 392 MG/DL (74-106); Osmolality,Calculated 306.3 MOS/KG (273-304); Potassium 4.3 MMOL/L (3.5-5.1); Sodium 141 MMOL/L (136-145); Total Protein 7.7 G/DL (6.4-8.2)
[2021-06-18 13:50] LABS: Amorphous Crystals,Urine Occasional /HPF (Few); Bilirubin,Urine Negative (Negative); Blood, Urine Negative (Negative); Glucose,Urine (UA) >=500 mg/dL (Negative); Hyaline Casts,Urine 7 /LPF (0-3); Ketones,Urine Negative (Negative); Mucus,Urine Occasional /LPF (Occasional); Nitrite,Urine Negative (Negative); Protein,Urine >=500 MG/DL; RBC,Urine 3 /HPF (0-4); Squamous Epithelial Cell,Urine Occasional /HPF (0-10); Urine Appearance CLEAR (Clear); Urine Color Yellow (Yellow); Urine Specific Gravity 1.016 (1.001-1.035); Urine Urobilinogen < 2.0 EU/DL (0.2-1.0)
[2021-06-18] MEDS ORDERED: INSULIN REGULAR 100 UNIT/ML SUBCUT STA (14:06)
[2021-06-18] MEDS ORDERED: hydrALAZINE 20 MG/1 ML VIAL IV PRN (14:46)
[2021-06-18] MEDS ORDERED: ACETAMINOPHEN 325 MG TABLET PO PRN (14:46)
[2021-06-18] MEDS ORDERED: GLUCAGON 1 MG VIAL IM PRN (14:46)
[2021-06-18] MEDS ORDERED: DEXTROSE 50% 25 GM/50 ML VIAL IV PRN (14:46)
[2021-06-18] MEDS ORDERED: ONDANSETRON 4 MG/2 ML VIAL IV PRN (14:46)
[2021-06-18] MEDS ORDERED: SODIUM PHOSPHATE ENEMA 133 ML BOTTLE RECTAL ONE ×2 (14:53→16:30)
[2021-06-18] MEDS ORDERED: MAGNESIUM HYDROXIDE SUSP 30 ML UDCUP PO PRN (14:55)
[2021-06-18] MEDS ORDERED: ALBUTEROL 2.5 MG/3 ML NEB RESP TX PRN (15:10)
[2021-06-18] MEDS: POLYETHYLENE GLYCOL POWDER 17 GM PACK PO SCH (16:30)
[2021-06-18] MEDS: ENOXAPARIN 40 MG/0.4 ML SYRINGE SUBCUT SCH (16:30)
[2021-06-18] MEDS: DOCUSATE SODIUM 100 MG CAPSULE PO SCH ×2 (16:30→21:35)
[2021-06-18] MEDS: SODIUM CHLORIDE 0.9% 1,000 ML IV SCH (17:00)
[2021-06-18] MEDS: INSULIN LISPRO 100 UNIT/ML SUBCUT SCH ×2 (18:43→21:35)
[2021-06-18] MEDS ORDERED: INSULIN GLARGINE 100 UNIT/ML SUBCUT SCH (21:00)
[2021-06-18] MEDS ORDERED: ATORVASTATIN 40 MG TABLET PO SCH (21:00)
[2021-06-18] MEDS: carvediloL 6.25 MG TABLET PO SCH (21:28)
[2021-06-18] MEDS: MAGNESIUM CHLORIDE 64 MG TABLET PO SCH (21:29)
[2021-06-18] MEDS: GABAPENTIN 300 MG CAPSULE PO SCH (21:29)
[2021-06-19] MEDS: SODIUM CHLORIDE 0.9% 1,000 ML IV SCH (04:25)
[2021-06-19 06:59] LABS: Basophils % 0.2 % (0.0-0.8); Eosinophils % 0.2 % (0.00-10.9); Immature Granulocytes % 0.6 %; Immature Granulocytes Absolute 0.06 #; Lymphocytes # 2.5 10*3/uL (1.4-4.0); Lymphocytes % 23.9 % (21.3-54.2); Mean Corpuscular HGB Conc 30.6 GM/DL (32-36); Mean Corpuscular Volume 98.8 FL (87-102); Mean Platelet Volume 10.1 FL (9.6-12.0); Monocytes % 6.3 % (1.7-12.7); Neutrophils % 68.8 % (38.7-73.9); Red Cell Distribution Width 12.2 % (9.3-17.3); White Blood Count 10.6 T/CUMM (4-12)
[2021-06-19 07:07] LABS: Hemoglobin 10.4 GM/DL (12.0-16.0); Platelet Count 328 T/CUMM (130-400); Red Blood Count 3.44 MC/CUMM (3.8-5.5)
[2021-06-19 07:13] LABS: Albumin 2.3 G/DL (3.4-5.0); Bilirubin,Total 0.5 MG/DL (0.20-1.00); Calcium 8.2 MG/DL (8.5-10.1); Osmolality,Calculated 302.3 MOS/KG (273-304); Potassium 3.4 MMOL/L (3.5-5.1); Total Protein 5.7 G/DL (6.4-8.2)
[2021-06-19] MEDS ORDERED: POTASSIUM CHLORIDE INJ 40 MEQ in SODIUM CHLORIDE 0.45% 1,000 ML IV SCH (07:45)
[2021-06-19] MEDS ORDERED: POTASSIUM CHLORIDE 20 MEQ TABLET PO ONE (07:45)
[2021-06-19] MEDS: INSULIN LISPRO 100 UNIT/ML SUBCUT SCH ×3 (08:15→16:38)
[2021-06-19] MEDS ORDERED: lisinopriL 5 MG TABLET PO SCH (09:00)
[2021-06-19] MEDS ORDERED: MULTIVITAMIN (CENTRUM) TABLET PO SCH (09:00)
[2021-06-19] MEDS ORDERED: PANTOPRAZOLE 40 MG TABLET PO SCH (09:00)
[2021-06-19] MEDS ORDERED: LORATADINE 10 MG TABLET PO SCH (09:00)
[2021-06-19] MEDS: carvediloL 6.25 MG TABLET PO SCH (09:40)
[2021-06-19] MEDS: GABAPENTIN 300 MG CAPSULE PO SCH (09:40)
[2021-06-19] MEDS: DOCUSATE SODIUM 100 MG CAPSULE PO SCH (09:40)
[2021-06-19] MEDS: MAGNESIUM CHLORIDE 64 MG TABLET PO SCH (09:40)
[2021-06-19] MEDS: POLYETHYLENE GLYCOL POWDER 17 GM PACK PO SCH (09:41)
[2021-06-19] MEDS ORDERED: MENTHOL/ZINC OXIDE OINT 71 GM JAR TOP SCH (12:00)
[2021-06-19] MEDS: ENOXAPARIN 40 MG/0.4 ML SYRINGE SUBCUT SCH (16:19)
[2021-06-19 16:35] VITALS: BP 120/45
[2021-06-20] MEDS ORDERED: VENLAFAXINE XR 37.5 MG CAPSULE PO SCH (09:00)
== END 2021-06-19 16:30 ==
LOC: EDUNIT# → N.EDINP 10:11 → N.ED 10:11 → N.3E 22:10
PROVIDERS: ADMIT Internal Medicine; ATTEND Internal Medicine